=== PATIENT | female | born 1980 | race Caucasian/White ===

== ENCOUNTER 2018-09-21 18:35 | Emergency (ER) | payer OTHER, MEDICAID ==
[~2018-09-21] VITALS: Ht 165.1 cm; Wt 83.9 kg
[~2018-09-21 18:35] MED LIST: ACETAMINOPHEN-1 EAC1 PO; ADVIL200 MG PO; AFRIN15 ML NS; ALPRAZOLAM 0.50.5 M1; AMOXICILLIN 50500 M1 PO; ANAPROX DS550 MG PO; BENADRYL25 MG; CELEXA 20 MG TA20 MG; CLARITIN10 MG PO; CLEOCIN HCL150 MG PO; COMPAZINE10 MG PO; COZAAR 50 MG TA50 M2 PO; FLONASE 0.05%50 MCG NASAL; HYDROXYZINE HCL25 M1 PO; MEBENDAZOLE100 MG PO; MUCINEX600 MG PO; OXYCONTIN10 M1 PO; PERCOCET 5-3251 EACH PO; PROBIOTIC1 EACH; ROBAXIN 750 MG750 M1 PO; ROBAXIN500 MG PO; SYMBICORT80 MCG/4.5 INH; TRAMADOL 50 MG50 MG PO; VENTOLIN17 GM INH; XANAX 0.5 MG0.5 MG PO; ZANTAC 150MG T150 M1; ZANTAC 150MG T150 MG PO; ZYRTEC10 M2
[2018-09-21 18:44] VITALS: BP 134/86
[2018-09-21] MEDS ORDERED: PROPRANOLOL 1010 MG PO (18:48)
[2018-09-21] MEDS ORDERED: NEURONTIN 300300 M1 PO (18:48)
[2018-09-21] MEDS ORDERED: MOBIC7.5 MG PO (18:48)
[2018-09-21] MEDS ORDERED: DOXYCYCLINE 10100 MG PO (18:59)
[2018-09-21] MEDS ORDERED: KEFLEX500 M1 PO (18:59)
== END 2018-09-21 19:26 | disposition home or self-care (01) ==
LOC: M.ERS 18:35
DX: T63.301A Toxic effect of unspecified spider venom, accidental (unintentional), initial encounter (principal); Y92.89 Other specified places as the place of occurrence of the external cause; J45.909 Unspecified asthma, uncomplicated; I10 Essential (primary) hypertension; K21.9 Gastro-esophageal reflux disease without esophagitis; Z90.49 Acquired absence of other specified parts of digestive tract; F17.210 Nicotine dependence, cigarettes, uncomplicated

== ENCOUNTER 2021-04-13 18:36 | Emergency (ER) | payer OTHER, MEDICAID ==
[~2021-04-13] VITALS: Ht 165.1 cm; Wt 87.5 kg
[~2021-04-13 18:36] MED LIST changes: +DOXYCYCLINE 10100 MG PO; +KEFLEX500 M1 PO; +MOBIC7.5 MG PO; +NEURONTIN 300300 M1 PO; +PROPRANOLOL 1010 MG PO
[2021-04-13 20:08] LABS: URINE BILIRUBIN NEGATIVE (Negative); URINE BLOOD 3+ (Negative); URINE CLARITY CLEAR; URINE COLOR YELLOW; URINE GLUCOSE-RANDOM NEGATIVE (Negative); URINE KETONES NEGATIVE (Negative); URINE LEUKOCYTES-REFLEX 1+ (Negative); URINE NITRITE-REFLEX NEGATIVE (Negative); URINE PROTEIN NEGATIVE (Negative); URINE SPECIFIC GRAVITY <= 1.005 (1.005-1.030); URINE UROBILINOGEN 0.2 E.U./dl (0.2-1.0)
[2021-04-13 20:23] LABS: BACTERIA-REFLEX 1-9 Few /HPF (None Seen); CASTS None Seen /LPF (None Seen); CRYSTALS None Seen /LPF (None Seen); SQUAMOUS 4-10 Moderate /LPF (0-3); URINE RBC 3-10 Few /HPF (0-2); URINE WBC-REFLEX 6-15 Few /HPF (0-5)
[2021-04-13] MEDS ORDERED: CEPHALEXIN500 MG PO (20:49)
[2021-04-13] MEDS ORDERED: PYRIDIUM100 M1 PO (20:50)
[2021-04-13 20:54] VITALS: BP 122/67
[2021-04-13] MEDS ORDERED: APAP W/CODEINE1 TA2 PO (21:00)
== END 2021-04-13 20:54 | disposition home or self-care (01) ==
LOC: M.ERS 18:36
PROVIDERS: Emergency Medicine
DX: R31.9 Hematuria, unspecified (principal); J45.909 Unspecified asthma, uncomplicated; I10 Essential (primary) hypertension; K21.9 Gastro-esophageal reflux disease without esophagitis; F17.210 Nicotine dependence, cigarettes, uncomplicated; Z90.49 Acquired absence of other specified parts of digestive tract; Z90.89 Acquired absence of other organs; Z79.899 Other long term (current) drug therapy